=== PATIENT | male | born 1995 | race African-American/Black ===

== ENCOUNTER 2021-02-16 10:56 | Emergency (ER) | payer OTHER, SELFPAY ==
[~2021-02-16] VITALS: Ht 175.3 cm; Wt 55.0 kg
[2021-02-16 11:03] VITALS: BP 118/78
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
[2021-02-16] MEDS ORDERED: BOOSTRIX/ADACEL VACCINE (DIPHTH/PERTUSS/ACELL/TETANUS) 0.5ML SYR IM ONE (12:55)
== END 2021-02-16 14:42 | disposition home or self-care (01) ==
LOC: M ED 10:56 → EDBD 10:56 → M ED 14:42
DX: S06.0X1A Concussion with loss of consciousness of 30 minutes or less, initial encounter (principal); S01.81XA Laceration without foreign body of other part of head, initial encounter; V49.40XA Driver injured in collision with unspecified motor vehicles in traffic accident, initial encounter; M43.16 Spondylolisthesis, lumbar region; M51.26 Other intervertebral disc displacement, lumbar region; Z23 Encounter for immunization

== ENCOUNTER 2021-03-02 17:19 | Emergency (ER) | payer OTHER ==
[~2021-03-02] VITALS: Ht 175.3 cm; Wt 57.8 kg
[2021-03-02 17:20] VITALS: BP 128/82
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
== END 2021-03-02 18:30 | disposition home or self-care (01) ==
LOC: M ED 17:19
DX: Z48.02 Encounter for removal of sutures (principal)